=== PATIENT | male | born 1955 | race Caucasian/White ===

== ENCOUNTER 2016-11-27 10:19 | Observation (INO) ==
--- NOTE | 2016-11-27 11:14 | Order Completion Report ---
See report scanned to EMR
[2016-11-27] MEDS ORDERED: SODIUM CHLORIDE 0.9% 1,000 ML IV SCH (11:30)
[2016-11-27] MEDS: SODIUM CHLORIDE 0.9% 1,000 ML IV SCH (11:31)
[2016-11-27 11:32] LABS: Basophils % 0.4 % (0.0-0.8); Eosinophils # 0.1 10*3/uL (0.0-0.87); Eosinophils % 1.7 % (0.00-10.9); Hematocrit 34.3 VOL% (42.0-52.0); Hemoglobin 11.9 GM/DL (14.0-18.0); Immature Granulocytes % 0.4 %; Immature Granulocytes Absolute 0.03 #; Lymphocytes # 0.4 10*3/uL (1.4-4.0); Lymphocytes % 5.7 % (21.2-54.2); Mean Corpuscular HGB Conc 34.7 GM/DL (32-36); Mean Corpuscular Hemoglobin 32 PG (27-34); Mean Corpuscular Volume 92.2 FL (87-102); Mean Platelet Volume 9.8 FL (9.6-12.0); Monocytes # 0.5 10*3/uL (0.11-0.8); Monocytes % 7.2 % (1.7-12.7); Neutrophils # 6.4 10*3/uL (1.4-7.4); Neutrophils % 84.6 % (38.7-73.9); Platelet Count 151 T/CUMM (130-400); Red Blood Count 3.72 MC/CUMM (3.8-5.5); Red Cell Distribution Width 12.7 % (9.3-17.3); White Blood Count 7.5 T/CUMM (4-12)
[2016-11-27 11:39] LABS: INR 1.1; PT Patient Result 11.8 SECS; Partial Thromboplastin Time 26.2 SECS (0-40)
[2016-11-27] MEDS ORDERED: ceFAZolin 1,000 MG VIAL ONE (12:05)
[2016-11-27] MEDS ORDERED: SODIUM CHLORIDE 0.9% 100 ML IV ONE (12:05)
[2016-11-27] MEDS ORDERED: PROPOFOL 200 MG/20 ML VIAL IV ONE (12:37)
[2016-11-27] MEDS ORDERED: LIDOCAINE 1% 5 ML VIAL ONE (12:37)
--- NOTE | 2016-11-27 12:54 | History and Physical Update ---
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 He is unable to eat and we are asked to place gastrostomy tube for nutritional support.
--- NOTE | 2016-11-27 12:57 | Operative Note ---
Date of procedure: 11/27/16 Pre-op diagnosis: Inability to eat Procedure: Procedure: Esophagogastroduodenoscopy with percutaneous endoscopic gastrostomy tube placement Brief clinical abstract: 61-year-old male has history of GE junction carcinoma diagnosed in 06/12. 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 He is unable to eat and has had difficulty swallowing liquids of late. He reports losing 10 pounds in just the last 2 weeks. Indication for procedure: Inability to eat, malignant dysphagia Endoscopic findings:[After informed consent was obtained, the patient was placed in the left lateral decubitus position. The gastroscope was inserted in the upper esophagus under direct vision with no resistance encountered. Esophageal mucosa appeared normal down to the GE junction. There was circumferential exophytic tissue consistent with carcinoma at this level. I could not pass the 9.5 mm gastroscope through this. Spring-tipped guidewire was advanced through the lumen into the stomach. 12 mm savory dilator was passed carefully over the wire into the stomach. The dilator and wire were removed and gastroscope then advanced through this into the stomach. The proximal half of the stomach appeared to be involved with lienitis plastica change. Site for gastrostomy tube placement was selected using external indentation and endoscopic transillumination in the mid anterior antrum of stomach. There was at least 5 cm area proximal to this that did not appear to have any tumor involvement. The pyloric channel, duodenal bulb, second and third portion of the duodenum appeared normal. The endoscope was withdrawn and sterile field created over the anterior abdomen at the site previously selected. 5 cc of 1% lidocaine was injected subcutaneously down to the level of the gastric wall. Cook 20 Ethiopian gastrostomy tube was placed with pull technique without difficulty. The tube was secured at the 3.5 cm letty on the skin surface. A dressing was applied to the site afterwards. He appeared to tolerate the procedure well.] Impression: #1 carcinomatous change involving GE junction and proximal stomach #2 status post successful PEG tube placement Recommendations: Observe overnight for observation with IV antibiotics and plan discharge tomorrow if tolerating feedings well. Anesthesia: MAC, local Surgeon / Physician: Salvador Fay Estimated blood loss: minimal Specimens: none sent Condition: stable Disposition: post procedure unit Results - Labs CBC & BMP: 11/27/16 11:20 Discharge Plan - Discharge Medications No Action Promethazine Tab [Phenergan Tab] 25 mg PO Q4H PRN PRN Reason: Nausea Ondansetron Odt Tab [Zofran Odt] 8 mg PO Q8H PRN PRN Reason: Nausea Docusate Sodium Cap [Colace Cap] 100 mg PO BID Hydrocodone/Acetaminophen [[place] 10-325 Tablet] 1 each PO BID PRN PRN Reason: Pain Morphine Sulfate [Morphine Sulfate ER] 30 mg PO BEDTIME Lubiprostone [Amitiza] 8 mcg PO BID #60 capsule fentaNYL [Fentanyl 25 mcg/hr Patch] 1 patch TRANSDERM Q3DAY LORazepam TAB [Ativan Tab] 1 mg PO Q6H PRN PRN Reason: Anxiety Morphine Ir Tab [Morphine IR Tab] 15 mg PO Q4H PRN PRN Reason: Pain HYDROmorphone TAB [Dilaudid Tab] 4 mg PO Q4H PRN PRN Reason: Pain Morphine Sulfate [Morphine Sulfate ER] 30 mg PO BID PRN PRN Reason: Pain - Follow Up or Referral - Forms/Instructions
--- NOTE | 2016-11-27 12:59 | Gastrointestinal H&P ---
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 EGD today for PEG tube placement. Admit for observation overnight. May begin to use the tube today for flushes and medications. Consult dietitian. May begin PEG tube feedings in the morning. Continue home meds. Plan an addendum to followed by Dr. Fay. Current Visit: Yes History of Present Illness Chief complaint: Esophageal cancer History of present illness: Mr. Lopez is a 61 year old male who is being admitted to the hospital overnight for observation following PEG tube placement. Patient was diagnosed in May of this year with carcinoma at the GE junction following ongoing reports of dysphagia and weight loss. Since this time, patient has undergone chemoradiation therapy. He was noted to have a PET scan done in September which showed increased uptake that extended from the GE junction into the mid stomach at that time. He underwent EGD in September with findings of progression of the carcinoma with findings also probable linitis plastica in the proximal to mid stomach. His pathology report at that time showed moderately differentiated adenocarcinoma. Patient continues to have weight loss and inability to swallow anything at this time but water therefore presents to the GI Lab for PEG tube placement. During EGD, after patient was able to be dilated, PEG tube was successfully placed. He is being admitted to the hospital overnight for continued observation, IV antibiotics, with plans for discharge in the morning if patient remains stable. Home Medications Medication Instructions Recorded Confirmed Type Ondansetron Odt Tab [Zofran Odt] 8 mg PO Q8H PRN 10/03/16 11/27/16 History Promethazine Tab [Phenergan Tab] 25 mg PO Q4H PRN 10/03/16 11/27/16 History Docusate Sodium Cap [Colace Cap] 100 mg PO BID 11/17/16 11/27/16 History Hydrocodone/Acetaminophen [[place] 1 each PO BID PRN 11/17/16 11/27/16 History 10-325 Tablet] LORazepam TAB [Ativan Tab] 1 mg PO Q6H PRN 11/17/16 11/27/16 History Lubiprostone [Amitiza] 8 mcg PO BID #60 capsule 11/17/16 11/27/16 Rx Morphine Ir Tab [Morphine IR Tab] 15 mg PO Q4H PRN 11/17/16 11/27/16 History Morphine Sulfate [Morphine Sulfate 30 mg PO BEDTIME 11/17/16 11/27/16 History ER] fentaNYL [Fentanyl 25 mcg/hr Patch] 1 patch TRANSDERM Q3DAY 11/17/16 11/27/16 History HYDROmorphone TAB [Dilaudid Tab] 4 mg PO Q4H PRN 11/27/16 11/27/16 History Morphine Sulfate [Morphine Sulfate 30 mg PO BID PRN 11/27/16 11/27/16 History ER] Allergies Allergy/AdvReac Type Severity Reaction Status Date / Time No Known Allergies Allergy Verified 11/17/16 11:53 Medical,Surgical,& Family Hx - Medical History Cardio: No history of: Cardiac Dysrhythmia, Congenital Heart Disease, Hypertension, [place], Pacemaker Neurology: No history of: Seizures HEENT: History of: Eye Problem (Wears reading glasses) Rheumatology: History of;: Rheumatological Problems (Arthritis) Genitourinary: History of: Prostate Problems (Elevated PSA has appt with Dr. Soria this month) Gastrointestinal: History of: GERD, Gastrointestinal Bleed (esophageal cancer), GI Problems (esophageal ca) No history of: Hepatitis, Liver Problems Musculoskeletal: History of: Back/Neck Problems (Back pain), Degenerative Disk Disease, Herniated Disk Hematology: No history of: Blood Transfusion Reaction Reproductive: No histroy: Reproductive Cancer Other: History of: Cancer (esophageal ca) No history of: Anesthesia Reactions - Surgical History Cardiac Surgeries: Patient Denies: Cardiac Catheterization, Carotid Endarterectomy Thoracic Surgeries: Patient denies;: Organ Transplant, Lobectomy HEENT Surgeries: Patient denies: Carotid Endarterectomy, Eye Surgery, Thyroid Surgery, Tonsilectomy & Adenoidectomy Abdominal Surgeries: Surgical HX of: Abdominal Surgery, Appendectomy, Colonoscopy, EGD Patient denies: Cholecystectomy, Gastric Bypass Surgery, Hernia Repair Reproductive Surgeries: Patient denies;: Genitourinary Surgery, Vasectomy Orthopedic Surgeries: Surgical HX of;: Orthopedic Surgery (RIGHT knee scope; Fusion L5 S1 - removed partial of L3-5) Patient denies;: Implanted Devices, Total Hip Replacement, Total Knee Replacement - Family History Family History: Reports;: Family Cancer (Father (Squamous cell carcinoma) Sister (colon)), Family Heart Disease (Mother) Denies;: Family Anesthesia Reaction, Family Diabetes, Family Hypertension, Family Psychiatric Problems, Family Stroke - Social History Smoking Status: Former smoker Frequency of Alcohol Use: None Type of Drug Use: None 12 point system: reviewed and no additional remarkable complaints except as stated - Constitutional Constitutional: Present: as per HPI, anorexia, weight loss - EENT Eyes: Present: as per HPI Ears: Present: as per HPI Nose, mouth and throat: Present: as per HPI, dysphagia - Cardiovascular Cardiovascular: Present: as per HPI - Respiratory Respiratory: Present: as per HPI - Gastrointestinal Gastrointestinal: Present: as per HPI, dysphagia, odynophagia - Genitourinary Genitourinary: Present: as per HPI - Musculoskeletal Musculoskeletal: Present: as per HPI - Neurological Neurological: Present: as per HPI - Psychiatric Psychiatric: Present: as per HPI - Endocrine Endocrine: Present: as per HPI - Hematologic/Lymphatic Hematologic/Lymphatic: Present: as per HPI Exam - Constitutional Vitals: Period Temp Pulse Resp BP Sys/Duran Pulse Ox Last 24 Hr 98.2 F 85 20 120/067 95 General appearance: no acute distress, under weight - Head Head exam: Present: normal inspection, normocephalic - Eye Eye exam: Present: other (lids and conjunctiva are unremarkable). Absent: scleral icterus - ENT ENT exam: Present: normal exam, normal oropharynx - Neck Neck exam: Present: normal inspection - Respiratory Respiratory exam: Present: clear to auscultation bilaterally. Absent: rales, rhonchi, wheezes - Cardiovascular Cardiovascular exam: Present: regular rate and rhythm. Absent: diastolic murmur , JVD, systolic murmur - GI/Abdominal GI/Abdominal exam: Present: normal bowel sounds, soft. Absent: ascites, distended, mass, organomegaly, tenderness - Extremities Exam Extremities exam: Present: normal inspection, full ROM - Back Exam Back exam: Present: normal inspection - Neurological Exam Neurological exam: Present: alert, oriented X3 - Psychiatric Psychiatric exam: Present: normal affect, normal mood - Skin Skin exam: Present: normal color, warm, dry Results - Labs CBC & BMP: 11/27/16 11:20
[2016-11-27] MEDS ORDERED: ACETAMINOPHEN 325 MG TABLET PO PRN (13:02)
--- NOTE | 2016-11-27 13:02 | Anesthesia Post-Op ---
Anesthesia Post OP - Post Ansesthetic Evaluation Patient seen in post op: Yes Resp: within normal limits CV: within normal limits Mental: within normal limits Temp: within normal limits [id number]: within normal limits Nausea and Vomiting: within normal limits Pain: within normal limits
[2016-11-27] MEDS ORDERED: LORazepam 1 MG TABLET PO PRN (13:05)
[2016-11-27] MEDS ORDERED: MORPHINE IR 15 MG TABLET PO PRN (13:05)
[2016-11-27] MEDS ORDERED: HYDROmorphone 2 MG TABLET PO PRN (13:05)
[2016-11-27] MEDS ORDERED: PROMETHAZINE 25 MG TABLET PO PRN (13:05)
[2016-11-27] MEDS ORDERED: MORPHINE ER 30 MG TABLET PO PRN (13:05)
[2016-11-27] MEDS ORDERED: ONDANSETRON ODT 4 MG TABLET PO PRN (13:05)
[2016-11-27] MEDS ORDERED: HYDROmorphone 2 MG/1 ML VIAL IV PRN (14:08)
[2016-11-27] MEDS: LACTATED RINGERS 1,000 ML IV SCH (14:37)
[2016-11-27] MEDS ORDERED: DEXTROSE 50% 25 GM/50 ML SYRINGE IV PRN (16:33)
[2016-11-27] MEDS ORDERED: GLUCAGON 1 MG VIAL IM PRN (16:33)
[2016-11-27] MEDS: HYDROmorphone 2 MG/1 ML VIAL IV PRN (18:13)
[2016-11-27] MEDS: MORPHINE ER 30 MG TABLET PO SCH (21:04)
[2016-11-27] MEDS: LUBIPROSTONE 8 MCG CAPSULE PO SCH (21:04)
[2016-11-27] MEDS: DOCUSATE SODIUM 100 MG CAPSULE PO SCH (21:04)
[2016-11-28] MEDS: LACTATED RINGERS 1,000 ML IV SCH ×3 (01:13→22:56)
[2016-11-28 08:12] LABS: Calcium 9.1 MG/DL (8.5-10.1); Magnesium 2.3 MG/DL (1.8-2.4); Osmolality,Calculated 268.1 MOS/KG (273-304); Phosphorous 4.6 MG/DL (2.5-4.9); Potassium 4.8 MMOL/L (3.5-5.1); Prealbumin 15.7 MG/DL (20-40)
[2016-11-28] MEDS: LUBIPROSTONE 8 MCG CAPSULE PO SCH ×2 (08:46→21:18)
--- NOTE | 2016-11-28 08:47 | Discharge Summary ---
Hospital Course - Hospital Course Hospital Course: Mr. Lopez was admitted to the hospital for observation overnight following PEG tube placement Sunday. Patient has a history of carcinoma at the GE junction with increasing dysphagia and weight loss. He presented on Sunday for outpatient EGD with successful placement of PEG tube following dilation of his esophagus. He was placed in observation overnight postprocedure as well as for pain control and IV hydration. He has had postprocedure pain that has been controlled with IV Dilaudid. He was transitioned on yesterday to his routine pain medications via PEG tube. He was scheduled for tentative discharge on yesterday, however he developed nausea and vomiting with initiation of his PEG tube feedings. He has had no further vomiting episodes since yesterday afternoon and is tolerating the feedings in smaller amounts at this time. His PEG tube site today is without any redness, drainage or bleeding. Abdominal binder is in place. If patient continues to tolerate his tube feedings today, we will plan to discharge home later today. Diagnosis - Discharge Diagnosis (1) GE junction carcinoma Status: Acute Discharge Plan - Discharge Data Condition at Discharge: Stable Discharge Diet: other (Tube feeding diet) Activity: resume usual activities as tolerated Hygiene: no restrictions Weight Bearing at Discharge: full weight bearing Driving: no restrictions Contact your physician if you experience:: fever over 101, Nausea/Vomiting, pain uncontrolled by pain medications - Discharge Medications Continue Promethazine Tab [Phenergan Tab] 25 mg PO Q4H PRN PRN Reason: Nausea Ondansetron Odt Tab [Zofran Odt] 8 mg PO Q8H PRN PRN Reason: Nausea Docusate Sodium Cap [Colace Cap] 100 mg PO BID Hydrocodone/Acetaminophen [[place] 10-325 Tablet] 1 each PO BID PRN PRN Reason: Pain Morphine Sulfate [Morphine Sulfate ER] 30 mg PO BEDTIME Lubiprostone [Amitiza] 8 mcg PO BID #60 capsule fentaNYL [Fentanyl 25 mcg/hr Patch] 1 patch TRANSDERM Q3DAY LORazepam TAB [Ativan Tab] 1 mg PO Q6H PRN PRN Reason: Anxiety Morphine Ir Tab [Morphine IR Tab] 15 mg PO Q4H PRN PRN Reason: Pain HYDROmorphone TAB [Dilaudid Tab] 4 mg PO Q4H PRN PRN Reason: Pain Morphine Sulfate [Morphine Sulfate ER] 30 mg PO BID PRN PRN Reason: Pain - Follow Up or Referral - Forms/Instructions Instructions: Acute Nausea and Vomiting (DC), Acute Abdominal Pain (GEN), Tube Feeding (DC) Exam - Constitutional Vitals: Period Temp Pulse Resp BP Sys/Duran Pulse Ox Last 24 Hr 98.2 F-98.8 F 71-81 18-20 120-139/50-78 94-97 General appearance: no acute distress, under weight - Head Head exam: Present: normal inspection, normocephalic - Eye Eye exam: Present: other (Lids and conjunctivae are unremarkable). Absent: scleral icterus - ENT ENT exam: Present: normal exam, normal oropharynx - Neck Neck exam: Present: normal inspection - Respiratory Respiratory exam: Present: clear to auscultation bilaterally. Absent: rales, rhonchi, wheezes - Cardiovascular Cardiovascular exam: Present: regular rate and rhythm. Absent: diastolic murmur , JVD, systolic murmur - GI/Abdominal GI/Abdominal exam: Present: normal bowel sounds, tenderness, soft. Absent: ascites, distended, mass, organomegaly - Extremities Exam Extremities exam: Present: normal inspection, full ROM - Back Exam Back exam: Present: normal inspection - Neurological Exam Neurological exam: Present: alert, oriented X3 - Psychiatric Psychiatric exam: Present: normal affect, normal mood - Skin Skin exam: Present: normal color, warm, dry Discharge Results Labs on day of discharge: Labs from last 24 hours 11/28/16 14:11 Sodium 136 Potassium 4.1 Chloride 98 Carbon Dioxide 33 H Anion Gap 9.1 BUN 9 Creatinine 0.70 GFR Calculation 120 BUN/Creatinine Ratio 12.00 Glucose 137 H Calculated Osmolality 272.0 L Calcium 8.7 Magnesium 2.0 DS: Provider Date of admission: 11/27/16 Primary care physician: Gabi Garcia Consults: 11/27/16 11:02 Consult to Dietitian [CONS] Routine Reason for Dietitian: Dietary Consult Consult Comment: Tube feeding recommendations-pt will be admitted after placement 11/27/16 14:28 Consult to Dietitian [CONS] Routine Reason for Dietitian: Other 11/28/16 16:20 Consult to Case Mgmt/Social Srvs [CONS] Routine Reason for Case Mgmt/Social Srvs: Other Consult Comment: new peg, will need feedings Two rahat HN cans Discharging clinician: Ruben Arita Expected date of discharge: 11/28/16
[2016-11-28] MEDS: DOCUSATE SODIUM 100 MG CAPSULE PO SCH ×2 (09:17→21:18)
[2016-11-28] MEDS: ONDANSETRON 4 MG/2 ML VIAL IV PRN (09:52)
[2016-11-28] MEDS: HYDROmorphone 2 MG/1 ML VIAL IV PRN ×2 (13:20→22:55)
--- NOTE | 2016-11-28 14:18 | Gastrointestinal Progress Note ---
Assessment and Plan (1) GE junction carcinoma Status: Acute Assessment and plan: 11/28-events of today noted as below. Tube feeding schedule readjusted. Continued episodes of vomiting this afternoon. Will remain inpatient overnight and reevaluate in the morning. If improved and tolerating feedings, we will tentatively discharge tomorrow. Plan an addendum to followed by Dr. Fay. 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 EGD today for PEG tube placement. Admit for observation overnight. May begin to use the tube today for flushes and medications. Consult dietitian. May begin PEG tube feedings in the morning. Continue home meds. Plan an addendum to followed by Dr. Fay. Current Visit: Yes Gastroenterology - PN: Subj Interval history: CC: Esophageal cancer/PEG placement Patient seen awake and alert with family at bedside. Patient had an uneventful night pain was well controlled with last pain medication given at 8 PM. Patient was doing well this morning however midmorning he received his first tube feeding at 60 mL. Shortly after this patient began vomiting to feeding contents. Dietitian was notified his feeding recommendations were modified at that time. Patient was tentatively plan for discharge today however he has had continued episodes of vomiting since this morning. His pain continues to be controlled at present time. We will continue to watch him another night and reevaluate in the morning. Abdomen is soft, mild tenderness at PICC site. No drainage, redness or bleeding site noted. Abdominal binder is intact. ROS: Denies shortness of breath or chest pain Exam (Progress Note) - Constitutional Vitals: Period Temp Pulse Resp BP Sys/Duran Pulse Ox Last 24 Hr 98.0 F-99 F 72-84 16-20 113-152/54-76 93-98 General appearance: normal weight, no acute distress - Head Head exam: Present: normal inspection, normocephalic - Eye Eye exam: Present: other (Lids and conjunctivae are unremarkable). Absent: scleral icterus - ENT ENT exam: Present: normal exam, normal oropharynx - Neck Neck exam: Present: normal inspection - Respiratory Respiratory exam: Present: clear to auscultation bilaterally. Absent: rales, rhonchi, wheezes - Cardiovascular Cardiovascular exam: Present: regular rate and rhythm. Absent: diastolic murmur , JVD, systolic murmur - GI/Abdominal GI/Abdominal exam: Present: normal bowel sounds, tenderness, soft. Absent: ascites, distended, mass, organomegaly - Extremities Exam Extremities exam: Present: normal inspection, full ROM - Back Exam Back exam: Present: normal inspection - Neurological Exam Neurological exam: Present: alert, oriented X3 - Psychiatric Psychiatric exam: Present: normal affect, normal mood - Skin Skin exam: Present: normal color, warm, dry Results - Labs CBC & BMP: 11/27/16 11:20 11/28/16 06:31 Lab Results: I have reviewed the past 24 hour labs
[2016-11-28 14:41] LABS: Calcium 8.7 MG/DL (8.5-10.1); Potassium 4.1 MMOL/L (3.5-5.1)
[2016-11-28] MEDS: ONDANSETRON 4 MG TABLET PO SCH ×3 (15:37→22:35)
[2016-11-28] MEDS: SODIUM CHLORIDE 0.9% 1,000 ML IV SCH (18:45)
[2016-11-28] MEDS: MORPHINE ER 30 MG TABLET PO SCH (21:14)
[2016-11-29] MEDS: ONDANSETRON 4 MG TABLET PO SCH (06:56)
[2016-11-29] MEDS: HYDROmorphone 2 MG/1 ML VIAL IV PRN (06:59)
[2016-11-29] MEDS: LACTATED RINGERS 1,000 ML IV SCH ×2 (07:06→11:06)
[2016-11-29] MEDS: ONDANSETRON 4 MG/2 ML VIAL IV PRN (09:57)
[2016-11-29] MEDS: LUBIPROSTONE 8 MCG CAPSULE PO SCH (10:02)
[2016-11-29] MEDS: DOCUSATE SODIUM 100 MG CAPSULE PO SCH (10:02)
[2016-11-29] MEDS ORDERED: DEXTROSE 50% 25 GM/50 ML VIAL IV PRN (11:00)
[2016-11-29 12:43] VITALS: BP 131/53
[2016-11-30] MEDS ORDERED: fentaNYL 25 MCG/HR PATCH TRANSDERM SCH (09:00)
== END 2016-11-29 15:00 | disposition home or self-care (01) ==
LOC: N.GILAB 10:19 → N.5E 10:19
PROVIDERS: ADMIT Internal Medicine Gastroenterology; ATTEND Internal Medicine Gastroenterology
PROC: EGDWPEG (ICD-10-PCS; 2016-11-27 10:35)